=== PATIENT | male | born 1965 | race Caucasian/White ===

== ENCOUNTER 2020-05-13 12:41 | Emergency (ER) | payer SELFPAY ==
[2020-05-13] VITALS (68 sets, daily range): BP systolic 135–157; BP diastolic 82–95; PULSE 57–89; RESP 20; TEMP 37.1; O2SAT 97–100
--- NOTE | 2020-05-13 12:30 | RT.EKG_ITS ---
APPROVED REPORT Exam: Resting ECG Patient Location: E HR:74 bpm ECG Measurements Heart Rate 74 AXIS VA [id number] P [id number] QRSd 93 QRS 23 QT 395 T 45 QTc 437 Conclusion Software: Atrial fibrillation...V-rate 61- 89, irreg A-activity I disagree with software interpretation. Sinus with artifact is present.
--- NOTE | 2020-05-13 13:45 | RT.EKG_ITS ---
APPROVED REPORT Exam: Resting ECG Patient Location: E HR:61 bpm ECG Measurements Heart Rate 61 AXIS MS 137 P 59 QRSd 92 QRS 36 QT 444 T 45 QTc 449 Conclusion Sinus rhythm...normal P axis, V-rate 60- 99
--- NOTE | 2020-05-13 13:45 | DI.CT_ITS ---
EXAM: CT CHEST PE CTA CLINICAL HISTORY: chest pain. TECHNIQUE: Imaging Protocol: Axial CT angiography was performed with multi-slice acquisition and mu lti-planar and/or 3D reconstructions. CONTRAST MATERIAL: Intravenous: Omnipaque 350 Contrast volume:100 mL COMPARISON: No exams were available for comparison FINDINGS: Tracheobronchial tree: Patent where visualized. Pulmonary parenchyma: No consolidation or dominant measurable mass. Centrilobular and paraseptal emph ysematous changes are present in the lungs. Note is made of an azygos lobe. Pulmonary Arteries: No evidence of filling defect to suggest pulmonary emboli. Mediastinum and Gale: No dominant adenopathy or fluid collection. Visualized thyroid gland: Unremarkable. Pleura: No effusion or pneumothorax. Heart: Mild cardiomegaly. Mild coronary artery calcifications. No pericardial effusion. Aorta: Dilatation of the ascending thoracic aorta up to 3.8 cm. No evidence of dissection. Upper abdomen: Unremarkable. Bones: Degenerative changes. Soft tissues: Unremarkable. IMPRESSION: No evidence of pulmonary embolism, thoracic aortic dissection or aneurysm. RADIATION DOSE DELIVERED: 320.18mGy.cm Total DLP DATA REPOSITORY: All CT scans at this facility are submitted to the National Radiology Data Registry (NRDR) Dose Index Registry (DIR) with the [employer] (ACR). RADIATION OPTIMIZATION: All CT scans at this facility use at least one of these dose optimization te chniques: automated exposure control; mA and/or kV adjustment per patient size (includes targeted exa ms where dose is matched to clinical indication); or iterative reconstruction.
[2020-05-13 13:56] LABS: Abs Immature Grans 0.02 10^3/uL (0.0-0.06); Absolute Basophil Count 0.06 10^3/uL (0.0-0.2); Absolute Eosinophil Count 0.03 10^3/uL (0.0-0.7); Absolute Lymphocyte Count 1.44 10^3/uL (1.2-3.4); Absolute Monocyte Count 0.61 10^3/uL (0.1-0.8); Absolute Neutrophil Count 6.25 10^3/uL (1.2-6.7); Basophils % 0.7; Eosinophils % 0.4; HCT 45.3 % (40.0-50.0); HGB 15.3 g/dL (13.5-17.5); Immature Grans % 0.2; Lymphocytes % 17.1; MCH 32.2 pg (27.0-33.0); MCHC 33.8 % (32.0-36.0); MCV 95.4 fL (80-95); MPV 8.9 fL (8.0-11.0); Monocytes % 7.3; Neutrophils % 74.3; Nucleated RBC 0 %; Platelet Count 368 10^3/uL (130-400); RBC 4.75 10^6/uL (4.36-5.78); RDW 12.1 % (11.8-14.1); RDW-SD 42.4 fL; WBC 8.41 10^3/uL (4.4-10.8)
[2020-05-13] MEDS: Lactated Ringers 500 ML IV (14:03)
[2020-05-13 14:14] LABS: ALT 33 U/L (16-63); AST 25 U/L (15-37); Albumin 4.4 g/dL (3.4-5.0); Alkaline Phosphatase 44 U/L (46-116); Anion Gap 10.3 mmol/L (3-11); BUN 9 mg/dL (7-18); Bilirubin, Total 0.7 mg/dL (0.2-1.0); CO2 27.7 mmol/L (21.0-32.0); CREATININE 0.93 mg/dL (0.70-1.30); Calcium 9.2 mg/dL (8.5-10.1); Chloride 101 mmol/L (98-107); Glucose 98 mg/dL (74-106); Magnesium 2.1 mg/dL (1.8-2.4); Potassium 3.8 mmol/L (3.5-5.1); Sodium 139 mmol/L (136-145); Total Protein 7.6 g/dL (6.4-8.2); Troponin I < 0.05 ng/mL (<0.06)
[2020-05-13 14:18] LABS: NT-proBNP 47 pg/mL (<300)
--- NOTE | 2020-05-13 14:26 | ED.GENADUL_ITS ---
Discharge Plan Disposition Patient Disposition: HOME Condition: Good Discharge Details Clinical Impression: Emphysema lung, Breath shortness, Chest pain Primary Care Provider: None,None ED Provider: Nancy Bryan Home Meds and New Rx's Prescriptions: No Action No Known Home Meds RF: 0 Discharge Instructions Instructions: Chest Pain (ED), COPD (Chronic Obstructive Pulmonary Disease) (ED) Additional Instructions: Your imaging and labs today are concerning for emphysema. This is likely associated with your long-term smoking and is not acute. Please stop smoking. There is not indication at this time that you are having heart attack. I would like for you to have further cardiac evaluation with a stress test. I would also like for you to follow-up with a primary care. Care management will help arrange for follow-up. Please also discuss your financial concerns with them. If you develop increased work of breathing, increased chest pain, or other new/worsening symptoms please seek care urgently once again. As discussed, please begin daily baby aspirin. Discharge Data Discharge Date/Time-TO BE ENTERED AT DEPARTURE: 05/13/20 17:56 Medical Decision Making <Malik Perla MD - Last Filed: 06/09/20 11:09> 14:40 --54-year-old male presents with chest discomfort and shortness of breath since this morning. He is having a lot of anxiety related to significant life stressors. Patient is saturating well, in no respiratory distress, and hemodynamically s table. No concerning findings on exam. He does appear anxious. Screening ECG was reviewed and interpreted by me: Please see report, appears to be significant artifact. A second ECG was performed and reviewed and interpreted by me: Sinus rhythm 61 bpm, normal axis, no STEMI, nondiagnostic, see report. Consider ACS. Plan to check troponin. Consider acute pulmonary embolism and aortic dissection. Plan to obtain CT of the chest. I offered anxiolytic and patient declined. <FELIX Dee - Last Filed: 05/13/20 21:43> Care transition myself from Dr. Perla. Please see his initial note regarding presentation, history and physical exam. In brief, patient is a pleasant 54-year-old gentleman who presented today with chest discomfort and feeling shaky. Patient has not had any medical evaluation in several years. Patient has had a number of life stressors recently and there was concern for him potentially having increased anxiety recently. Patient is an active smoker and drinks regularly. At the time I assume care, imaging and repeat troponin were pending. FINDINGS: Pulmonary arteries: No pulmonary arterial embolism evident. Aorta: Thoracic aorta with mild aneurysmal dilatation of the ascending segment at 3.7 AP by 3.8 cm transversely. No dissection. Lungs: Moderate severity emphysematous lung changes bilaterally. Apical subpleural bulla. Mild bronchiectasis features. Pleural space: No pleural effusion. Heart: Mild cardiac enlargement. No pericardial effusion. Lymph nodes: Unremarkable. No enlarged lymph nodes. Bones/joints: Unremarkable. No acute fracture. Soft tissues: Unremarkable. IMPRESSION: 1. Moderate emphysematous lung changes. 2. No pulmonary arterial embolism. 3. Mild aneurysmal dilatation of the ascending aorta. No dissection. 4. Mild cardiomegaly. No pericardial effusion. 5. No pleural effusion. 6. 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 Repeat troponin is less than 0.05. Discussed these findings with the patient. He reports that since discussing his symptoms with Dr. Perla and being reassured by the first set of blood work, his symptoms clearly resolved and he is feeling 100% better. He is requesting discharge. We did discuss the diagnosis of emphysema based on the CT scan. Patient does not have a primary care. He is also very concerned that he does not have insurance or the financial means to continue to seek medical care. I have asked her care management to assist the patient with this much as possible. I would like for him to be followed up with primary care in the next 1 to 2 weeks. I would also like patient to have outpatient stress testing. Likely, patient will need to have his dilatation of his ascending aorta continue to be monitored but this can be arranged through primary care. His history and exam is not consistent with this being an issue acutely. Patient I discussed return precautions. He will begin daily aspirin. I advised smoking cessation we discussed general health measures to help prevent future issues. All questions concerns addressed and he is in agreement this plan. HPI <Malik Perla MD - Last Filed: 06/09/20 11:09> General Mode of arrival: ambulatory . Date/Time Provider Initiated Documentation: 05/13/20 13:11 . Limitations to Documentation: no limitations . Information obtained by: patient . HPI Narrative: 54-year-old male smoker, presents with chief complaint of chest discomfort. Patient notes chest discomfort since this morning. Discomfort is described as a dull feeling retrosternally. Discomfort is been constant for greater than 4 hours. He notes associated shortness of breath. Patient notes increased shortness of breath and dyspnea on exertion over the past 1 year. Symptoms seem worse this morning. No associated leg swelling or calf pain. No recent long distance travel or immobility. Patient states he is under a lot of stress recently with take out at work and stress related to relationship. Related Data Home Medications Medication Instructions Recorded Confirmed Unknown [No Known Home Meds] 05/13/20 05/13/20 Allergies Allergy/AdvReac Type Severity Reaction Status Date / Time hydrocodone [From Vicodin] AdvReac Dizziness/L Unverified 05/13/20 13:02 ighthead General Stated Complaint: Chest Pain CHERI: 2 Review of Systems <Malik Perla MD - Last Filed: 06/09/20 11:09> All systems reviewed & are unremarkable except as noted in HPI and below Constitutional Constitutional: Denies fever(s) Cardiovascular Cardiovascular: Reports as per HPI and Reports chest pain PFSH <Malik Perla MD - Last Filed: 06/09/20 11:09> Social History Smoking/Tobacco Use Status: Current every day Tobacco Type: cigarettes Years smoked: 30 Smoking risk assessment performed?: Yes Alcohol Intake: current Alcohol Intake frequency: 3 or more drinks per day Substance use type: marijuana Do you feel safe at home: Yes Do you feel safe in your relationship?: Yes Exam <Malik Perla MD - Last Filed: 06/09/20 11:09> Const General: cooperative and no acute distress HENMT Mouth: moist mucous membranes Eyes Conjunctivae: normal conjunctivae Sclera: normal sclerae Neck Neck: trachea midline Resp Auscultation: clear to auscultation bilaterally, no rales, no rhonchi and no wheezes Cardio Rate: regular rate and not tachycardic Rhythm: regular rhythm Heart Sounds: no murmurs GI Palpation: soft, not firm, no guarding, no masses, not rigid and nontender Skin General skin exam: no rashes or lesions noted Neuro General: patient alert, patient awake, patient oriented x3 and tone normal Extrem General: no calf tenderness and no edema Psych Appearance: grossly normal Mental Status: mental status grossly normal Affect: anxious affect Course <Malik Perla MD - Last Filed: 06/09/20 11:09> Vital Signs Vital signs: Vital Signs Temperature 37.1 C 05/13/20 12:51 Pulse 82 05/13/20 12:51 Respiratory Rate 20 05/13/20 12:51 Blood Pressure 157/86 H 05/13/20 12:51 Pulse Oximetry 99 05/13/20 12:51 Temperature 37.1 C 05/13/20 12:51 Temperature Source Skin 05/13/20 12:51 Pulse 82 05/13/20 12:51 Respiratory Rate 20 05/13/20 12:51 Respiratory Effort Non-Labored 05/13/20 13:03 Blood Pressure 157/86 H 05/13/20 12:51 Blood Pressure Position Sitting 05/13/20 12:51 Pulse Oximetry 99 05/13/20 12:51 Oxygen Delivery Method Room Air 05/13/20 12:51 Oxygen Flow Rate 0 05/13/20 12:51 Pain Level 0 05/13/20 12:51 Lab/Test Results Lab/Test Results: Laboratory Tests Range/Units 05/13/20 05/13/20 05/13/20 13:10 13:10 13:10 WBC (4.4-10.8) 10^3/uL 8.41 RBC (4.36-5.78) 10^6/uL 4.75 Hgb (13.5-17.5) g/dL 15.3 Hct (40.0-50.0) % 45.3 MCV (80-95) fL 95.4 H MCH (27.0-33.0) pg 32.2 MCHC (32.0-36.0) % 33.8 RDW (11.8-14.1) % 12.1 Plt Count (130-400) 10^3/uL 368 MPV (8.0-11.0) fL 8.9 Immature Gran % 0.2 Neutrophils % 74.3 Lymphocytes % 17.1 Monocytes % 7.3 Eosinophils % 0.4 Basophils % 0.7 Nucleated RBC % % 0 Absolute Neutrophils (1.2-6.7) 10^3/uL 6.25 Absolute Lymphocytes (1.2-3.4) 10^3/uL 1.44 Absolute Monocytes (0.1-0.8) 10^3/uL 0.61 Absolute Eosinophils (0.0-0.7) 10^3/uL 0.03 Absolute Basophils (0.0-0.2) 10^3/uL 0.06 Sodium (136-145) mmol/L 139 Potassium (3.5-5.1) mmol/L 3.8 Chloride (98-107) mmol/L 101 Carbon Dioxide (21.0-32.0) mmol/L 27.7 Anion Gap (3-11) mmol/L 10.3 BUN (7-18) mg/dL 9 Creatinine (0.70-1.30) mg/dL 0.93 Estimated GFR/1.73 m2 (mL/min/1.73m2) >= 60.00 Glucose (74-106) mg/dL 98 Calcium (8.5-10.1) mg/dL 9.2 Magnesium (1.8-2.4) mg/dL 2.1 Total Bilirubin (0.2-1.0) mg/dL 0.7 AST (15-37) U/L 25 ALT (16-63) U/L 33 Alkaline Phosphatase (46-116) U/L 44 L Troponin I (<0.06) ng/mL < 0.05 NT-Pro-B Natriuret Pep (<300) pg/mL Total Protein (6.4-8.2) g/dL 7.6 Albumin (3.4-5.0) g/dL 4.4 TSH (0.36-3.74) uIU/mL 1.00 Range/Units 05/13/20 13:10 WBC (4.4-10.8) 10^3/uL RBC (4.36-5.78) 10^6/uL Hgb (13.5-17.5) g/dL Hct (40.0-50.0) % MCV (80-95) fL MCH (27.0-33.0) pg MCHC (32.0-36.0) % RDW (11.8-14.1) % Plt Count (130-400) 10^3/uL MPV (8.0-11.0) fL Immature Gran % Neutrophils % Lymphocytes % Monocytes % Eosinophils % Basophils % Nucleated RBC % % Absolute Neutrophils (1.2-6.7) 10^3/uL Absolute Lymphocytes (1.2-3.4) 10^3/uL Absolute Monocytes (0.1-0.8) 10^3/uL Absolute Eosinophils (0.0-0.7) 10^3/uL Absolute Basophils (0.0-0.2) 10^3/uL Sodium (136-145) mmol/L Potassium (3.5-5.1) mmol/L Chloride (98-107) mmol/L Carbon Dioxide (21.0-32.0) mmol/L Anion Gap (3-11) mmol/L BUN (7-18) mg/dL Creatinine (0.70-1.30) mg/dL Estimated GFR/1.73 m2 (mL/min/1.73m2) Glucose (74-106) mg/dL Calcium (8.5-10.1) mg/dL Magnesium (1.8-2.4) mg/dL Total Bilirubin (0.2-1.0) mg/dL AST (15-37) U/L ALT (16-63) U/L Alkaline Phosphatase (46-116) U/L Troponin I (<0.06) ng/mL NT-Pro-B Natriuret Pep (<300) pg/mL 47 Total Protein (6.4-8.2) g/dL Albumin (3.4-5.0) g/dL TSH (0.36-3.74) uIU/mL Sign Out <Malik Perla MD - Last Filed: 06/09/20 11:09> Sign Out Data: Sign Out Comment: Care signed out to FELIX Bryan with plan to follow-up on CT chest and troponin. Reassess patient for disposition. Last updated by Malik Perla MD at 05/13/20 15:59
[2020-05-13] MEDS: Normal Saline - Diluent 50 ML VIAL IV (14:54)
[2020-05-13] MEDS: Normal Saline Flush 10 ML SYR IVP (14:55)
[2020-05-13] MEDS: Omnipaque 350 MG/ML 100 ML BTL IJ (14:55)
--- NOTE | 2020-05-13 16:43 | DI.VRAD_ITS ---
PROCEDURE INFORMATION: Exam: CT Angiography Chest With Contrast Exam date and time: 05/13/2020 1:46 PM Age: 54 years old Clinical indication: Other: Chest pain TECHNIQUE: Imaging protocol: Computed tomographic angiography of the chest with intravenous contrast. 3D rendering (Not supervised by radiologist): MIP and/or 3D reconstructed images were created by the technologist. COMPARISON: No relevant prior studies available. FINDINGS: Pulmonary arteries: No pulmonary arterial embolism evident. Aorta: Thoracic aorta with mild aneurysmal dilatation of the ascending segment at 3.7 AP by 3.8 cm transversely. No dissection. Lungs: Moderate severity emphysematous lung changes bilaterally. Apical subpleural bulla. Mild bronchiectasis features. Pleural space: No pleural effusion. Heart: Mild cardiac enlargement. No pericardial effusion. Lymph nodes: Unremarkable. No enlarged lymph nodes. Bones/joints: Unremarkable. No acute fracture. Soft tissues: Unremarkable. IMPRESSION: 1. Moderate emphysematous lung changes. 2. No pulmonary arterial embolism. 3. Mild aneurysmal dilatation of the ascending aorta. No dissection. 4. Mild cardiomegaly. No pericardial effusion. 5. No pleural effusion. 6. 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 Dictated and Authenticated by: Walt Tran MD. Ordering:SAGAR Gan MD
[2020-05-13 17:14] LABS: Troponin I < 0.05 ng/mL (<0.06)
--- NOTE | 2020-05-13 17:50 | NUR.NOTE ---
Referral to Care Management to get patient established with pcp and various other resources. Nursing Note:
--- NOTE | 2020-05-14 11:04 | CMPROGNOTE_ITS ---
- If Service Date Differs Date of service: 05/14/20 Time of Service: 11:04 Care Management Progress Note Jose David is seen in the ED on 05/13/20 for emphysema and chest pain. At the request of FELIX Dee, ED provider, MARY coordinates a referral to Amna Thurston aprn, of [facility], on-call provider, to assist Jose David in obtaining a follow up appointment and in establishing care with a PCP.
== END 2020-05-13 17:56 | disposition home or self-care (01) ==
PROVIDERS: Student in an Organized Health Care Education/Training Program; Emergency Provider Physician Assistant
DX: J43.8 Other emphysema (principal); R07.2 Precordial pain; R06.02 Shortness of breath; F41.9 Anxiety disorder, unspecified; J44.9 Chronic obstructive pulmonary disease, unspecified; F17.210 Nicotine dependence, cigarettes, uncomplicated
CPT/HCPCS: 36415; 71275; 80053; 93005; 96360; 99285; 83735; 83880; 84443; 84484; 85025; 93010; 99284; J3490

== ENCOUNTER 2020-09-27 01:03 | Outpatient (CLI) | payer SELFPAY ==
--- NOTE | 2020-09-27 08:30 | DI.MRI_ITS ---
Exam(s) MR LUMBAR SPINE WO EXAM: MR LUMBAR SPINE WO CLINICAL HISTORY: PT no progress with drop foot of left,LUMBAR BACK PAIN,M54.16. TECHNIQUE: Multiplanar multisequence MRI of the Lumbar spine was performed. COMPARISON: No exams were available for comparison FINDINGS: Bones: The last intervertebral disc space is designated the L5/S1 level for the numbering purpose of this examination. The vertebral body heights are well maintained. There is disc desiccation through out the lumbar spine. There is disc space narrowing at L5-S1. Degenerative endplate signal changes a re seen at L1-L2, L3-L4 and L5-S1. Cord: The conus tip ends at the L1 level. It is of normal size and signal intensity. T12-L1: No disc herniations or bulges are present. No central spinal canal or neural foraminal stenos is. L1-2: No disc herniations or bulges are present. No central spinal canal or neural foraminal stenosis . L2-3: No disc herniations or bulges are present. No central spinal canal or neural foraminal stenosis . L3-4: There is a large disc herniation eccentric to the right extending into the right neural foramen . This in conjunction with the degenerative changes of the facets causes marked central spinal canal stenosis. There is also marked right neural foraminal stenosis with compression of the exiting nerv e root. Mild narrowing of the left neural foramen is noted. L4-5: No disc herniations or bulges are present. No central spinal canal or neural foraminal stenosis . L5-S1: There is prominence of the osteophyte disc complex. No significant central spinal canal steno sis is seen. Degenerative changes of the facets are noted. This contributes to cause [id number] te bilateral neural foraminal stenosis, left greater than right. Soft tissues: The visualized SI joints and sacrum are well maintained. The paraspinal soft tissues ar e unremarkable. IMPRESSION: 1. Large disc herniation at L3-L4 eccentric to the right with extension into the right neural foramen . This, in conjunction with the degenerative changes of the facets, causes marked central spinal can al and right neural foraminal stenosis with compression of the exiting nerve root. There is mild lef t neural foraminal stenosis. 2. Degenerative changes at L5-S1 causing [id number] bilateral neural foraminal stenosis, left g reater than right. DATA REPOSITORY:
== END 2020-09-27 01:23 ==
PROVIDERS: PCP Nurse Practitioner Family; Visit Provider Nurse Practitioner Family
DX: M54.16 Radiculopathy, lumbar region (principal); M21.372 Foot drop, left foot; M51.16 Intervertebral disc disorders with radiculopathy, lumbar region; M47.27 Other spondylosis with radiculopathy, lumbosacral region
CPT/HCPCS: 72148

== ENCOUNTER 2020-09-27 10:40 | Outpatient (CLI) | payer SELFPAY ==
[2020-09-27 14:17] LABS: Hemoglobin A1C 5.3 % (<5.7)
[2020-09-27 15:21] LABS: Calculated LDL 68 mg/dL (<100); Cholesterol 174 mg/dL (<200); HDL Cholesterol 97 mg/dL (40-60); Triglyceride 49 mg/dL (<150)
== END 2020-09-27 10:41 | disposition home or self-care (01) ==
PROVIDERS: PCP Nurse Practitioner Family; Visit Provider Nurse Practitioner Family
DX: Z13.1 Encounter for screening for diabetes mellitus (principal); Z13.220 Encounter for screening for lipoid disorders
CPT/HCPCS: 36415; 80061; 83036

== ENCOUNTER 2023-07-04 12:14 | Emergency (ER) | payer SELFPAY ==
--- NOTE | 2023-07-04 12:15 | RT.EKG_ITS ---
APPROVED REPORT Exam: Resting ECG Reason for Exam: Chest Pain/SOB Patient Location: E HR:77 bpm ECG Measurements Heart Rate 77 AXIS DE 135 P 65 QRSd 94 QRS 61 QT 401 T 31 QTc 453 Conclusion Sinus rhythm...normal P axis, V-rate 60- 99
[2023-07-04 12:20] VITALS: BP 178/108; PULSE 82; RESP 18; TEMP 36.4; O2SAT 100
[2023-07-04 12:35] VITALS: BP 168/106; PULSE 80; RESP 22; TEMP 36.7; O2SAT 98
--- NOTE | 2023-07-04 12:45 | DI.RAD_ITS ---
Exam(s) XR CHEST 2V PA LATERAL EXAM: XR CHEST 2V PA LATERAL CLINICAL HISTORY: chest pain TECHNIQUE: 2D digital imaging was performed of the chest. Two images were obtained. PA and lateral views were obtained. COMPARISON: CR CHEST 2 VIEWS PA,LAT from 02/11/2011 FINDINGS: MEDIASTINUM: Normal. HEART: Normal. PULMONARY VASCULATURE: Normal. LUNGS: There is hyperexpansion of the lungs suggesting underlying COPD. No focal consolidating infil trates are seen. Nipple shadows are seen overlying the mid lungs. PLEURAL SPACE: No pleural effusion or pneumothorax. BONE:Within normal limits for the patient's age. OTHER FINDINGS:Normal. IMPRESSION: No acute pulmonary findings. DATA REPOSITORY: RADIATION DOSE DELIVERED:
--- NOTE | 2023-07-04 12:49 | ED.GENADUL_ITS ---
Discharge Plan Disposition Patient Disposition: Home Condition: Stable Discharge Details Clinical Impression: General weakness, Chest discomfort, Hypertension Primary Care Provider: Pietro Mcpherson ED Provider: Laith Malone Home Meds and New Rx's Prescriptions: Continued ibuprofen 200 mg tablet 200 mg PO Q6H PRN chlorhexidine gluconate 0.12 % mouthwash 15 ml buccal BID Qty: 750 0RF lisinopril 10 mg tablet 10 mg PO DAILY Qty: 30 0RF Discharge Instructions Additional Instructions: Your blood work and x-ray did not show any concerning findings at this time Start taking lisinopril Follow-up with your primary care provider within 1 to 2 weeks If you feel more ill, have severe worsening pain or difficulty breathing return to the emergency department for reevaluation HPI General Mode of arrival: ambulatory . Date/Time Provider Initiated Documentation: 07/04/23 12:21 . Limitations to Documentation: no limitations . Information obtained by: patient . History of Present Illness 57 year old M presents to the emergency department with the chief complaint of chest discomfo rt, described as moderate, Patient started experiencing this day(s) (1) and it has been intermittent. No relieving factors improve symptom(s), No exacerbating factors reported . Patient notes weakness. Patient did receive the following treatments prior to arrival, none Related Data Home Medications Medication Instructions Recorded Confirmed ibuprofen 200 mg tablet 200 mg PO Q6H PRN 08/14/20 07/04/23 chlorhexidine gluconate 0.12 % 15 ml buccal BID #750 mL 12/15/22 07/04/23 mouthwash lisinopril 10 mg tablet 10 mg PO DAILY #30 tabs 07/04/23 Previous Rx's Medication Instructions Recorded chlorhexidine gluconate 0.12 % 15 ml buccal BID #750 mL 12/15/22 mouthwash lisinopril 10 mg tablet 10 mg PO DAILY #30 tabs 07/04/23 Allergies Allergy/AdvReac Type Severity Reaction Status Date / Time hydrocodone [From Vicodin] AdvReac Dizziness/L Verified 07/04/23 12:20 ighthead General Stated Complaint: GenMedical CHERI: 3 Review of Systems All systems reviewed & are unremarkable except as noted in HPI and below Constitutional Constitutional: Denies chills, Denies fever(s) and Reports weakness ENT Ears, Nose, Mouth, and Throat: Denies change in voice Cardiovascular Cardiovascular: Reports chest pain and Denies dyspnea Respiratory Respiratory: Denies cough and Denies dyspnea Gastrointestinal Gastrointestinal: Denies abdominal pain, Denies nausea and Denies vomiting Musculoskeletal Musculoskeletal: Denies joint swelling Neurologic Neurologic: Reports weakness Exam Const General: no acute distress Orientation: alert HENMT Head: normal to inspection Ears: external ears normal General nose exam: external nose normal Mouth: moist mucous membranes Eyes General: appearance normal, both eyes and all related structures Neck Neck: normal visual inspection Resp Effort & Inspection: normal respiratory effort and able to speak in complete sentences Auscultation: clear to auscultation bilaterally Cardio Jugular venous pressure: no JVD Rate: regular rate Heart Sounds: no murmurs Skin General skin exam: no rashes or lesions noted Neuro General: patient alert and patient oriented x3 Extrem General: normal to inspection Psych Mental Status: mental status grossly normal Course Vital Signs Vital signs: Vital Signs Temperature 36.4 C L 07/04/23 12:20 Pulse 82 07/04/23 12:20 Respiratory Rate 18 07/04/23 12:20 Blood Pressure 178/108 H 07/04/23 12:20 Pulse Oximetry 100 07/04/23 12:20 Temperature 36.7 C 07/04/23 12:35 Temperature Source Tympanic 07/04/23 12:35 Pulse 80 07/04/23 12:35 Respiratory Rate 22 07/04/23 12:35 Respiratory Effort Normal 07/04/23 12:27 Respiratory Depth Normal 07/04/23 12:27 Blood Pressure 168/106 H 07/04/23 12:35 Blood Pressure Position Sitting 07/04/23 12:20 Pulse Oximetry 98 07/04/23 12:35 Oxygen Delivery Method Room Air 07/04/23 12:35 Oxygen Flow Rate 0 07/04/23 12:35 Pain Level 0 07/04/23 12:27 Medical Decision Making 57-year-old male with a history of hypertension but is not on any medications currently, states also has disc herniations in his lower back, comes in with complaints of years of lower extremity burning sensation and just general weakness. Also notes that he had episodes where he has brain fog and really cannot think well. This morning he started to have some chest discomfort, denies that it is painful or pressure sensation. He also notes he felt shaky so he came here. He is oriented x 4 and appears well on exam, his legs appear normal, no swelling or discoloration, intact peripheral pulses, no calf tenderness, has full range of motion of his legs with good strength. No abdominal tenderness, clear lungs, no focal deficits. Unclear etiology for his prolonged course with his general weakness and brain fog, has no focal deficits to suggest stroke and has no headache so do not feel any imaging of his head is indicated at the current time. Given his chest discomfort will obtain EKG and troponin, send a D-dimer, has no tearing back pain so doubt dissection. I suspect his discomfort in his legs is from his peripheral neuropathy, he has no findings on exam to suggest a DVT, acute arterial occlusion, or infectious etiology. Labs unremarkable, patient stable. Given he had over 3 hours of symptoms do not feel delta troponin indicated. He is stable for discharge, will provide a 30- day prescription for his lisinopril and advised to follow-up with his primary care and return precautions given Differential Diagnosis Differential Diagnosis: Peripheral neuropathy, anemia, ACS Medical Records Medical records reviewed: Yes I reviewed the patient's medical records. Imaging Data Radiologic Study: Attestation: I personally reviewed and interpreted this imaging study as follows: Imaging: X-Ray Radiologist's impression: MEDIASTINUM: Normal. HEART: Normal. PULMONARY VASCULATURE: Normal. LUNGS: There is hyperexpansion of the lungs suggesting underlying COPD. No focal consolidating infiltrates are seen. Nipple shadows are seen overlying the mid lungs. PLEURAL SPACE: No pleural effusion or pneumothorax. BONE:Within normal limits for the patient's age. OTHER FINDINGS:Normal. IMPRESSION: No acute pulmonary findings. Lab Data Lab results reviewed: Yes I reviewed the patient's lab results. ECG Data Attestation: I personally reviewed and interpreted this ECG (s) as follows: Prior ECG tracings: available for review Interpretation: sinus rate of 77 pr 135 no stemi Quality:SDOH Health Related Social Needs: No Data to Display [facility] All Active Problems (Updated 07/04/23 @ 14:15 by Laith Malone MD) Chest discomfort (Acute) General weakness (Acute) Hypertension (Chronic) Lumbar disc herniation with radiculopathy (Acute) Smoker (Acute) 1 pack/day 30+ years Depression (Chronic) Family History Mother , 29 No problems noted. Father No problems noted. Sister No problems noted. Brother No problems noted. Son No problems noted. Maternal Grandfather , 70's No problems noted. Paternal Grandfather , 50's No problems noted. Maternal Grandmother , lates 70's No problems noted. Paternal Grandmother , midd. 60's No problems noted. Social History Smoking/Tobacco Use Status: Current every day Tobacco Type: cigarettes Years smoked: 30 Quit status: considering quitting Second Hand Exposure: Yes Smoking risk assessment performed?: Yes Alcohol Intake: current Alcohol Intake frequency: 3 or more drinks per day Drug use: Occasionally Substance use type: marijuana Caregiver/Support person: No Household members: none Housing: house Communication Needs: None Do you need help understanding health information?: Rarely Pets and animals: Yes Pets and animals: cat(s) Sexually active: No Do you think of yourself as: straight/heterosexual Current gender identity: male What is your relationship status?: never How often do you talk on the phone with friends or family?: once per week Panel score (0-1 are the most socially isolated patients): 0 Duration: < 15 minutes/day Frequency: 1-2 times per week Grazyna/Taoist: Taoism Seatbelt use: always Drive intox or ride w/intox coal tram driver: No Do you feel safe at home: Yes Do you feel safe in your relationship?: Yes PAWSS Have you Been Recently Intoxicated or Drunk Within the Last 30 days?: Yes Have you Ever Experienced Previous Episodes of Alcohol Withdrawal?: No Have you ever Experienced Withdrawal Seizures?: No Have you ever Experienced Delirium Tremens(DT)s?: No Have you ever undergone Alcohol Rehabilitation Treatment (i.e, inpt ot outpatient treatment programs)?: No Have you ever Experienced Blackouts?: No Have you ever Combined Alcohol with other Downers within the last 90 days?: No Have you ever Combined Alcohol with any other Substance of Abuse during the last 90 days?: No Positive Blood Alcohol level on Presentation? [PCS.BAL]: No Evidence of Increased Autonomic Activity (i.e. HR>120, tremor, sweating, agitati on, nausea)?: No Result: 1
[2023-07-04 13:07] LABS: BE (Venous) 5 mmol/L (-2-3); HCO3 (Venous) 29 mmol/L (23-28); O2 Sat (Venous) 52 %; TCO2 (Venous) 25 mmol/L (24-29); pCO2 (Venous) 42 mmHg (41-51); pH (Venous) 7.45 (7.31-7.41); pO2 (Venous) 26 mmHg
[2023-07-04 13:10] LABS: Abs Immature Grans 0.02 10^3/uL (0.0-0.06); Absolute Basophil Count 0.07 10^3/uL (0.0-0.2); Absolute Lymphocyte Count 1.54 10^3/uL (1.2-3.4); Absolute Monocyte Count 0.75 10^3/uL (0.1-0.8); Absolute Neutrophil Count 7.79 10^3/uL (1.2-6.7); Basophils % 0.7; HGB 16.7 g/dL (13.5-17.5); Immature Grans % 0.2; MCHC 34.1 % (32.0-36.0); MCV 94 fL (80-95); MPV 8.4 fL (8.0-11.0); Monocytes % 7.3; Neutrophils % 75.8; Platelet Count 382 10^3/uL (130-400); RBC 5.22 10^6/uL (4.36-5.78); RDW 12.3 % (11.8-14.1); RDW-SD 43.1 fL; WBC 10.27 10^3/uL (4.4-10.8)
[2023-07-04 13:28] LABS: ALT 25 U/L (16-63); AST 16 U/L (15-37); Albumin 4.9 g/dL (3.4-5.0); Alkaline Phosphatase 59 U/L (46-116); Anion Gap 11.3 mmol/L (3-11); BUN 10 mg/dL (7-18); Bilirubin, Total 0.8 mg/dL (0.2-1.0); CO2 27.7 mmol/L (21.0-32.0); Calcium 9.9 mg/dL (8.5-10.1); Chloride 102 mmol/L (98-107); Estimated GFR 87.78 (mL/min/1.73m2); Glucose 103 mg/dL (74-106); Magnesium 2.2 mg/dL (1.8-2.4); Potassium 3.9 mmol/L (3.5-5.1); Sodium 141 mmol/L (136-145); Total Protein 8.6 g/dL (6.4-8.2)
[2023-07-04 13:48] LABS: Troponin I < 50 ng/L (< or =60)
[2023-07-04 13:59] LABS: Creatine Kinase 206 U/L (39-308)
[2023-07-04 14:32] VITALS: BP 142/80; PULSE 88; RESP 18; TEMP 36.8; O2SAT 97
[2023-07-05 06:13] LABS: D-Dimer 324 ng/mlFEU (<500)
--- NOTE | 2023-07-05 06:15 | NUR.NOTE ---
Per lab D-dimer resulted incorrectly 07/04/23 as 233, corrected D-dimer result 07/05/[address] Woodson of correction at 0612.Nursing Note:
== END 2023-07-04 14:33 | disposition home or self-care (01) ==
PROVIDERS: Emergency Provider Emergency Medicine; PCP Nurse Practitioner Family
DX: R53.1 Weakness (principal); R07.9 Chest pain, unspecified; I10 Essential (primary) hypertension; G62.9 Polyneuropathy, unspecified; F17.210 Nicotine dependence, cigarettes, uncomplicated
CPT/HCPCS: 36415; 80053; 82550; 82805; 93005; 99285; 71046; 83735; 84484; 85025; 85379; 93010; 99284

== ENCOUNTER 2024-07-26 02:13 | Outpatient (CLI) | payer SELFPAY ==
[2024-07-26 13:08] LABS: Hemoglobin A1C 5.7 % (<5.7)
[2024-07-26 13:37] LABS: Calculated LDL 122 mg/dL (<100); Cholesterol 204 mg/dL (<200); HDL Cholesterol 62 mg/dL (>or=40); Triglyceride 101 mg/dL (<150)
== END 2024-07-26 02:14 | disposition home or self-care (01) ==
PROVIDERS: PCP Nurse Practitioner Family; Visit Provider Nurse Practitioner Family
DX: Z13.1 Encounter for screening for diabetes mellitus (principal); Z13.220 Encounter for screening for lipoid disorders
CPT/HCPCS: 36415; 80061; 83036